=== PATIENT | female | born 2000 | race Caucasian/White ===

== ENCOUNTER 2022-02-04 17:46 | Emergency (ER) | payer SELFPAY ==
[2022-02-04 18:01] VITALS: BP 126/83; PULSE 60; RESP 16; TEMP 36.3; O2SAT 100; BMI 34.3
--- NOTE | 2022-02-04 21:53 | ED.EXTPRO ---
HPI - Extremity Problem General Chief complaint: Extremity Problem Stated complaint: Hand pain Time Seen by Provider: 02/04/22 21:00 Source: patient Mode of arrival: ambulatory Limitations: no limitations History of Present Illness HPI Narrative: In comes to the emergency room complaining right-sided hand pain after punching a wall. Patient denies injury anywhere else. Patient has not taking any medications for pain or swelling. Related Data Previous Rx's Medication Instructions Recorded ibuprofen 600 mg tablet 600 mg PO TID PRN fever or pain 02/04/22 #20 tabs Allergies Allergy/AdvReac Type Severity Reaction Status Date / Time No Known Allergies Allergy Verified 02/04/22 18:04 Review of Systems Review of Systems: Constitutional : No Weight loss, No Fever, No Chills, No Night Sweats, No Fatigue, No Malaise ENT/Mouth : No Hearing loss, No Ear Pain, No Nasal Congestion, No Sinus Pain, No Hoarseness, No sore throat, No Rhinorrhea, No Swallowing Difficulty Eyes: No Eye Pain, No Swelling, No Redness, No Foreign Body, No Discharge, No Vision Changes Cardiovascular : No Chest Pain, No SOB, No Dyspnea on Exertion, No Orthopnea, No Edema, No Palpitations Respiratory : No Cough, No Sputum, No Wheezing, No Smoke Exposure, No Dyspnea Gastrointestinal : No Nausea, No Vomiting, No Diarrhea, No Constipation, No abdominal Pain, No Hematochezia, No Melena Genitourinary : no irregular bleeding, No Dysuria, No Urinary Frequency, No Hematuria, No Urinary Incontinence, No Urgency, No Flank Pain, No Urinary Flow Changes, No Hesitancy Musculoskeletal : Complaining of right-sided hand pain No Myalgias, No Joint Swelling Skin : No Skin Lesions, No rash Neuro : No Weakness, No Numbness, No Paresthesias, No Loss of Consciousness, No Dizziness, No Headache Psych : No Anxiety/Panic, No Depression, No SI/HI/AH/VH, No Social Issues, Heme/Lymph: No Bruising, No Bleeding,No Lymphadenopathy Endocrine : No Polyuria, No Polydipsia, No Temperature Intolerance PMFSH Social History Social History Advance Directives: No Advance Directives Information Provided: No Physical Exam Vital Signs: Vital Signs: Last Vital Signs Temp 97.3 F 02/04/22 18:01 Pulse 60 02/04/22 18:01 Resp 16 02/04/22 18:01 BP 126/83 02/04/22 18:01 Pulse Ox 100 02/04/22 18:01 O2 Del Method 02/04/22 18:01 BMI result Body Mass Index 34.3 Const: Other: Appearance: Alert. Oriented X3. No acute distress. Eyes: Pupils equal, round and reactive to light. ENT: Pharynx normal. Neck: Normal inspection. Neck supple. No lymph nodes noted. No crepitus CVS: Normal heart rate and rhythm. Pulses normal. Normal S1 and S2 Respiratory: No respiratory distress. Breath sounds normal. No Wheezing. No rales Abdomen: Soft and nontender. No rigidity. No distention. Skin: Skin warm and dry. Normal skin color. Normal skin turgor. Extremities: No lower extremity edema. Swelling to the right hand dorsal aspect, pain to palpation around the mom 5th metacarpal Neuro: Oriented X 3. No motor deficit. No sensory deficit. Moving all extremities. No slurred speech. CN 2 through 12 grossly intact Psych: calm, cooperative, normal affect Course Course Course Narrative: I discussed the x-rays with the patient, patient has a minimally displaced comminuted fracture of the base of the 5th metacarpal. Patient was given p.o. ibuprofen and was placed in a volar splint. Patient instructed to follow-up with orthopedics. MDM - Extremity (Nontraumatic) Imaging Data hAnd x-ray: Radiologist's impression: FINDINGS: Comminuted minimally displaced fracture at the base of the fifth metacarpal with suspected nondisplaced intra-articular extension at the fifth CMC joint. No additional fracture. No dislocation. Joint spaces throughout the hand and wrist are maintained. Ulnar minus variance noted.? XR/XR hand RT min 3V IMPRESSION: ? 1. Comminuted minimally displaced intra-articular fracture at the base of the fifth metacarpal. Discharge Plan Discharge Clinical Impression: Closed fracture of 5th metacarpal Patient Disposition: Home, Self-Care Instructions: Boxer Fracture (ED) Additional Instructions: Please follow-up with your primary care physician and Orthopedics tomorrow. If you have any worsening or new symptoms, please return to the emergency room or call 911 Prescriptions: New ibuprofen 600 mg tablet 600 mg PO TID PRN (Reason: fever or pain) Qty: 20 0RF Referrals: Laisha Jennings PA-C [Physician [employer]can[employer] Operator] - 2 days
[2022-02-04] MEDS: Ibuprofen 600 MG TABLET PO (22:28)
== END 2022-02-04 23:00 | disposition home or self-care (01) ==
PROVIDERS: Emergency Provider Emergency Medicine
DX: S62.306A Unspecified fracture of fifth metacarpal bone, right hand, initial encounter for closed fracture (principal); M79.644 Pain in right finger(s); X58.XXXA Exposure to other specified factors, initial encounter; Y93.9 Activity, unspecified; Y92.9 Unspecified place or not applicable; Y99.9 Unspecified external cause status
CPT/HCPCS: 29130; 73130; 99282; 99284

== ENCOUNTER 2022-02-14 05:14 | Outpatient (REF) | payer SELFPAY | END 2022-02-14 05:15 | disposition home or self-care (01) | LOC: HO.HOSX 05:14 | PROVIDERS: Visit Provider Physician Assistant | DX: Z13.89 Encounter for screening for other disorder (principal) ==